=== PATIENT | female | born 1955 | race Caucasian/White ===

== ENCOUNTER → 2018-08-26 11:34 | Outpatient (CLI) | payer BC, SELFPAY ==
[2018-08-26 12:17] LABS: Add Manual Diff / Slide Review NO; Basophils Percent Auto 0.8 % (0-2); Eosinophils Percent Auto 6.5 % (2-4); Hematocrit 41.5 % (36-46); Hemoglobin 14.3 g/dL (12.0-16.0); Lymphocytes Percent Auto 41.9 % (25-40); Mean Corpuscular HGB Conc 34.4 % (30-36); Mean Corpuscular Volume 89.9 fL (80-100); Monocytes Percent Auto 8.5 % (3-14); Neutrophils Absolute Auto 3400 /uL (3000-5900); Neutrophils Percent Auto 42.3 % (50-75); Platelet Count 224 X10^3/uL (150-400); Red Blood Cell Count 4.61 X10^6/uL (4.0-5.2); Red Cell Distribution Width 13.3 % (11.6-14.8); White Blood Cell Count 8.1 X10^3/uL (4.5-11.0)
[2018-08-26 12:23] LABS: Alanine Aminotransferase 29 IU/L (9-52); Albumin 4.3 g/dL (3.5-5.0); Albumin Globulin Ratio 1.3 (1.0-2.8); Alkaline Phosphatase 69 U/L (38-126); Aspartate Aminotransferase 19 IU/L (14-36); Bilirubin Total 0.5 mg/dL (0.2-1.3); Blood Urea Nitrogen 21 mg/dL (7-17); Calcium 9.9 mg/dL (8.4-10.2); Carbon Dioxide 28 mmol/L (22-32); Chloride 103 mmol/L (98-107); Cholesterol 193 mg/dL (140-199); Estimated Glomerular Filt Rate > 60.0 mL/min (>60); Globulin 3.2 g/dL (1.7-4.1); Glucose 90 mg/dL (80-110); HDL Cholesterol 44 mg/dL (40-60); HEMOLYSIS < 15 (0-50); LDL Cholesterol Calculated 135 mg/dL (<100); Potassium 4.1 mmol/L (3.4-5.1); Sodium 141 mmol/L (137-145); Total Protein 7.5 g/dL (6.3-8.2); Triglycerides 70 mg/dL (35-150)
[2018-08-26 12:54] LABS: Thyroid Stimulating Hormone 1.45 uIU/mL (0.47-4.68)
== END ==
PROVIDERS: PCP Internal Medicine; Visit Provider Internal Medicine
DX: E78.5 Hyperlipidemia, unspecified (principal)
CPT/HCPCS: 36415; 80053; 80061; 84443; 85025

== ENCOUNTER → 2018-09-29 13:44 | Outpatient (CLI) | payer BC, SELFPAY | PROVIDERS: PCP Internal Medicine; Visit Provider Internal Medicine | DX: M81.0 Age-related osteoporosis without current pathological fracture (principal); Z78.0 Asymptomatic menopausal state; Z82.62 Family history of osteoporosis; Z87.891 Personal history of nicotine dependence | CPT/HCPCS: 77080 ==

== ENCOUNTER → 2018-10-14 11:43 | Outpatient (CLI) | payer BC, SELFPAY ==
[2018-10-17 14:10] LABS: Parathyroid Hormone Int 42 pg/mL (14-64)
== END ==
PROVIDERS: PCP Internal Medicine; Visit Provider Internal Medicine
DX: M81.0 Age-related osteoporosis without current pathological fracture (principal)
CPT/HCPCS: 36415; 83970

== ENCOUNTER → 2019-09-19 14:18 | Outpatient (CLI) | payer BC, SELFPAY ==
--- NOTE | 2019-09-19 | DI.MG.S_ITS ---
BILATERAL DIGITAL SCREENING MAMMOGRAM 3D/2D WITH CAD: 09/19/2019 CLINICAL: Routine screening. Comparison is made to exams dated: 10/22/2016 mammogram, 02/27/2015 mammogram, and 09/28/2013 mammogram - [facility]. The tissue of both breasts is heterogeneously dense. This may lower the sensitivity of mammography. Current study was also evaluated with a Computer Aided Detection (CAD) system. There is an oval equal density asymmetry with an indistinct margin in the right breast middle depth medial region seen on the craniocaudal view only. No other significant masses, calcifications, or other findings are seen in either breast. IMPRESSION: INCOMPLETE: NEEDS ADDITIONAL IMAGING EVALUATION The oval equal density asymmetry in the right breast is indeterminate. Mediolateral and spot compression views as well as additional views with possible ultrasound are recommended. This exam was interpreted at Station ID: [id number]. NOTE: For mammograms, a report in lay terms will be sent to the patient. Approximately 15% of breast malignancies will not be visualized mammographically. In the management of a palpable breast mass, a negative mammogram must not discourage biopsy of a clinically suspicious lesion. Electronically Signed By: Sam canas/roni:09/19/2019 15:29:04 letter sent: Additional Imaging Needed ACR BI-RADS Category 0: Incomplete 3340F
== END ==
PROVIDERS: PCP Internal Medicine; Visit Provider Internal Medicine
DX: Z12.31 Encounter for screening mammogram for malignant neoplasm of breast (principal); M81.0 Age-related osteoporosis without current pathological fracture; Z78.0 Asymptomatic menopausal state; Z82.62 Family history of osteoporosis; Z87.891 Personal history of nicotine dependence
CPT/HCPCS: 77063; 77067; 77080

== ENCOUNTER → 2019-10-12 08:06 | Outpatient (CLI) | payer BC, SELFPAY ==
--- NOTE | 2019-10-12 | DI.MG.S_ITS ---
UNILATERAL RIGHT DIGITAL DIAGNOSTIC MAMMOGRAM 3D/2D WITH ADDITIONAL VIEWS: 10/12/2019 CLINICAL: Additional evaluation requested from prior study. Comparison is made to exams dated: 09/19/2019 mammogram, 10/22/2016 mammogram, and 02/27/2015 mammogram - [facility]. The tissue of right breast is heterogeneously dense. This may lower the sensitivity of mammography. The oval asymmetry with indistinct margins in the right breast middle depth medial region seen on the craniocaudal view only is not seen on additional views. No other significant masses or calcifications are seen in the breast. IMPRESSION: There is no mammographic evidence of malignancy. A 1 year screening mammogram is recommended. This exam was interpreted at Station ID: [id number]. NOTE: For mammograms, a report in lay terms will be sent to the patient. Approximately 15% of breast malignancies will not be visualized mammographically. In the management of a palpable breast mass, a negative mammogram must not discourage biopsy of a clinically suspicious lesion. Electronically Signed By: Sam canas/:10/12/2019 08:42:37 letter sent: Normal Exam ACR BI-RADS Category 2: Benign Finding(s) 3342F
== END ==
PROVIDERS: PCP Internal Medicine; Visit Provider Internal Medicine
DX: R92.8 Other abnormal and inconclusive findings on diagnostic imaging of breast (principal)
CPT/HCPCS: 77065; G0279

== ENCOUNTER 2020-11-24 17:59 | Emergency (ER) | payer BC, SELFPAY ==
[2020-11-24 18:08] VITALS: BP 129/61; PULSE 66; RESP 14; TEMP 36.6; O2SAT 97
[2020-11-24] MEDS: SODIUM CHLORIDE 0.9% 1,000 ML 1000 ML IV (18:30)
[2020-11-24 18:34] LABS: INR 1.1 (0.9-1.3); Prothrombin Time 12.4 SECONDS (10.1-12.7)
[2020-11-24 18:35] LABS: Add Manual Diff / Slide Review NO; Basophils Absolute Auto 100 /uL (0-100); Basophils Percent Auto 0.6 % (0-2); Eosinophils Absolute Auto 200 /uL (0-450); Eosinophils Percent Auto 2.2 % (2-4); Hematocrit 39.7 % (36-46); Hemoglobin 13.6 g/dL (12.0-16.0); Lymphocytes Absolute Auto 3600 /uL (1100-4500); Mean Corpuscular HGB Conc 34.3 % (30-36); Mean Corpuscular Hemoglobin 31.1 PG (26-34); Mean Corpuscular Volume 90.7 fL (80-100); Monocytes Absolute Auto 600 /uL (0-900); Monocytes Percent Auto 5.5 % (3-14); Neutrophils Absolute Auto 5900 /uL (1500-7000); Neutrophils Percent Auto 56.7 % (50-75); Platelet Count 225 X10^3/uL (150-400); Red Blood Cell Count 4.37 X10^6/uL (4.0-5.2); Red Cell Distribution Width 13.1 % (11.6-14.8); White Blood Cell Count 10.4 X10^3/uL (4.5-11.0)
[2020-11-24 18:37] LABS: PTT Partial Thromboplastin Tim 33 SECONDS (26.4-36.2)
[2020-11-24 18:40] LABS: Alanine Aminotransferase 13 IU/L (<35); Albumin Globulin Ratio 1.1 (1.0-2.8); Alkaline Phosphatase 90 U/L (38-126); Aspartate Aminotransferase 24 IU/L (14-36); BUN Creatinine Ratio 28.6 (6-22); Bilirubin Total 0.4 mg/dL (0.2-1.3); Blood Urea Nitrogen 14 mg/dL (7-17); Carbon Dioxide 29 mmol/L (22-32); Chloride 107 mmol/L (98-107); Creatine Kinase 22 U/L (30-135); Estimated Glomerular Filt Rate > 60.0 mL/min (>60); Globulin 3.5 g/dL (1.7-4.1); Glucose 101 mg/dL (80-110); HEMOLYSIS 43 (0-50); Lipase 67 U/L (23-300); Sodium 137 mmol/L (137-145); Total Protein 7.5 g/dL (6.3-8.2)
[2020-11-24 18:51] LABS: Troponin I < 0.012 ng/mL (0.01-0.034)
--- NOTE | 2020-11-24 19:20 | PC.NURSE ---
jPatient reports waking with sugar hangover reports increase thirst, increase gas. Nausea, one episode of diarrhea. Denies hitting head but caught myself going down. I bounce real well Patient states she feels better after the IV fluids she has received here in department. Patient denies burning urgency or frequency but has noted an odor to urine.
--- NOTE | 2020-11-24 20:31 | ED.DIZZY ---
HPI - Dizziness General Chief Complaint: Dizziness Stated Complaint: vertigo this morning,nausea,indigestion,headache Time Seen by Provider: 11/24/20 20:09 Source: patient Mode of arrival: Ambulatory Limitations: no limitations History of Present Illness HPI Narrative: 65-year-old woman with a history reflux presents complaining of acute onset of dizziness earlier this morning. She did have a small bit of loose stool this morning. She has noted some chills but no fevers significant nausea but no emesis. She notes that she was simply walking down the hallway when all of a sudden the room began spinning and she had to collect onto the wall. Over the course of the day it has continued, perhaps slightly diminishing over the course of the afternoon. She notes no numbness or weakness in extremities, no difficulty with finding words or expressing herself. She does note that for the last at least year she has had some decreased acuity in the left eye and does have an eye appointment scheduled to follow-up on this. Related Data Previous Rx's Medication Instructions Recorded duloxetine 60 mg capsule,delayed 60 mg PO QAM #90 tab 09/11/18 release estradiol 0.05 mg-norethindrone 1 patch TRANSDERMAL TWICE WEEKLY 09/11/18 0.14 mg/24 hr semiwkly transderm #24 each patch triamcinolone acetonide 0.1 % 1 applictn TOP DAILY #30 gram 09/11/18 topical ointment ibandronate 150 mg tablet 150 mg PO QMONTH #3 tab 09/25/18 meclizine 25 mg PO BID PRN #14 tab 11/24/20 ondansetron 4 mg PO Q8H PRN #20 tab 11/24/20 Allergies Allergy/AdvReac Type Severity Reaction Status Date / Time venlafaxine [VENLAFAXINE] Allergy Mild NIGHTMARES Verified 11/24/20 18:23 Review of Systems Review of Systems ROS Unobtainable: All systems reviewed & are unremarkable except as noted in HPI and below Patient History Medical History Chronic back pain (~2013) Depression (~2000) GERD (gastroesophageal reflux disease) (~2008) Surgical History Status post cholecystectomy (~2011) Family History Mother Cancer Grandmother No problems noted. Social History Smoking Status: Former smoker Smoking Status: Former smoker alcohol intake frequency: 0-2 drinks per day Substance Use Type: does not use Exam Narrative Exam Narrative: General: Healthy appearing, in no acute distress. Able to give a complete and coherent history. Well-nourished well-developed HEENT: Moist mucous membranes, normal sclera with reactive pupils, no evoked nausea or nystagmus with acute positional changes Neck: No JVD, supple Respiratory: Lungs are clear to auscultation, no wheezing no rales no rhonchi. Full and symmetrical air movement Cardiac: Regular rate and rhythm no murmurs no bruits Abdomen: Soft nontender good bowel tones, no flank pain Skin: Warm and dry, no rashes Neurologic: Grossly neurologically intact with no obvious asymmetries or abnormalities Extremities: No trauma, well perfused Psych: Cooperative, appropriate insight and affect Initial Vital Signs Initial Vital Signs: Vital Signs Temperature 97.8 F 11/24/20 18:08 Pulse Rate 66 11/24/20 18:08 Respiratory Rate 14 11/24/20 18:08 Blood Pressure 129/61 11/24/20 18:08 Pulse Oximetry 97 11/24/20 18:08 Course Orders Ordered: Discontinued Medications Sodium Chloride (Normal Saline 0.9%) 1,000 mls @ 1,000 mls/hr IV BOLUS ONE Stop: 11/24/20 19:27 Last Infusion: 11/24/20 19:44 Dose: 0 mls/hr Documented by: Admin: 11/24/20 18:30 Dose: 1,000 mls/hr Documented by: ALVA Meclizine HCl (Meclizine Hcl 12.5 Mg Tablet) 25 mg PO NOW ONE Stop: 11/24/20 20:12 Last Admin: 11/24/20 20:46 Dose: 25 mg Documented by: ALVA Ondansetron HCl (Ondansetron 4 Mg/2 Ml Inj) 4 mg IV NOW ONE Stop: 11/24/20 20:45 Last Admin: 11/24/20 20:47 Dose: 4 mg Documented by: ALVA Vital Signs Vital signs: Vital Signs - 8 hr 11/24/20 20:52 Pulse Rate 62 Respiratory Rate 17 Blood Pressure 135/61 Pulse Oximetry 99 MDM - Dizziness Medical Records Attestation: I reviewed the patient's medical records. Lab Data Attestation: I reviewed the patient's lab results. Result diagrams: 11/24/20 18:19 11/24/20 18:19 Labs: Lab Results 11/24/20 11/24/20 11/24/20 Range/Units 18:19 18:19 18:19 WBC 10.4 (4.5-11.0) X10^3/uL RBC 4.37 (4.0-5.2) X10^6/uL Hgb 13.6 (12.0-16.0) g/dL Hct 39.7 (36-46) % MCV 90.7 (80-100) fL MCH 31.1 (26-34) PG MCHC 34.3 (30-36) % RDW 13.1 (11.6-14.8) % Plt Count 225 (150-400) X10^3/uL Neut % (Auto) 56.7 (50-75) % Lymph % (Auto) 35.0 (25-40) % [place] % (Auto) 5.5 (3-14) % Eos % (Auto) 2.2 (2-4) % Baso % (Auto) 0.6 (0-2) % Neut # (Auto) 5900 (0431-2277) /uL Lymph # (Auto) 3600 (7759-1746) /uL [place] # (Auto) 600 (0-900) /uL Eos # (Auto) 200 (0-450) /uL Baso # (Auto) 100 (0-100) /uL PT 12.4 (10.1-12.7) SECONDS INR 1.1 (0.9-1.3) APTT 33 (26.4-36.2) SECONDS Sodium 137 (137-145) mmol/L Potassium 4.0 (3.4-5.1) mmol/L Chloride 107 (98-107) mmol/L Carbon Dioxide 29 (22-32) mmol/L BUN 14 (7-17) mg/dL Creatinine 0.49 L (0.52-1.04) mg/dL Estimated GFR > 60.0 (>60) mL/min BUN/Creatinine Ratio 28.6 H (6-22) Glucose 101 (80-110) mg/dL Calcium 10.0 (8.4-10.2) mg/dL Magnesium 2.0 (1.6-2.3) mg/dL Total Bilirubin 0.4 (0.2-1.3) mg/dL AST 24 (14-36) IU/L ALT 13 (<35) IU/L Alkaline Phosphatase 90 (38-126) U/L Total Creatine Kinase 22 L (30-135) U/L CK-MB (CK-2) TNP CK-MB (CK-2) Rel Index TNP Troponin I < 0.012 (0.01-0.034) ng/mL Total Protein 7.5 (6.3-8.2) g/dL Albumin 4.0 (3.5-5.0) g/dL Globulin 3.5 (1.7-4.1) g/dL Albumin/Globulin Ratio 1.1 (1.0-2.8) Lipase 67 (23-300) U/L Urine Dip Bedside Urine Glucose Negative Bedside Urine Bilirubin - Negative Bedside Urine Ketone - Negative Urine Specific [place] 1.025 Bedside Urine Occult Blood +/- Bedside Urine pH 6.0 Bedside Urine Protein - Negative Bedside Urine Urobilinogen - Negative Bedside Urine Nitrite - Negative Bedside Urine Leukocytes - Negative Esterase MDM Narrative Medical decision making narrative: 65-year-old woman presents with acute vertigo without signs or symptoms suggesting stroke, head bleed, benign positional vertigo, trauma, infection or other life threatening issues. Symptoms did improve with meclizine in terms of vertigo still much slight nausea that improved with Zofran. She was able to walk without difficulty and is discharged home Discharge Plan Departure Patient Disposition: Home Clinical Impression: Vertigo Instructions: DI for Vertigo Activity Restrictions/Additional Instructions: Thank you for coming in today Vertigo is a horrible symptom. Fortunately it already seems like it is improving a bit for you. You are not showing any signs of severe infection or stroke as a cause for the vertigo today. To treat the spinning type symptoms, you can use meclizine For symptoms that are more related to nausea you can use Zofran If you feel things are getting worse or your developing any new neurologic type symptoms (part of your body isn't working right, numbness, difficulty speaking or understanding things) please feel free to return for further evaluation. Prescriptions: New meclizine 25 mg tablet 25 mg PO BID PRN (Reason: vertigo) Qty: 14 RF: 0 ondansetron 4 mg tablet,disintegrating 4 mg PO Q8H PRN (Reason: nausea and vomiting) Qty: 20 RF: 0 No Action ibandronate 150 mg tablet 150 mg PO QMONTH Qty: 3 RF: 3 triamcinolone acetonide 0.1 % ointment 1 applictn TOP DAILY Qty: 30 RF: 0 estradiol-norethindrone acet [CombiPatch] 0.05-0.14 mg/24 hr patch semiweekly 1 patch Transdermal TWICE WEEKLY Qty: 24 RF: 3 duloxetine [Cymbalta] 60 mg capsule,delayed release(DR/EC) 60 mg PO QAM Qty: 90 RF: 3 Referrals: Charlotte Shepard ARNP [Primary Care Provider] -
[2020-11-24] MEDS: MECLIZINE HCL 12.5 MG TABLET 25 MG PO (20:46)
[2020-11-24] MEDS: ONDANSETRON 4 MG/2 ML INJ IV (20:47)
[2020-11-24 20:52] VITALS: BP 135/61; PULSE 62; RESP 17; O2SAT 99
== END 2020-11-24 20:56 | disposition home or self-care (01) ==
PROVIDERS: Emergency Medicine; Emergency Provider Emergency Medicine; PCP Internal Medicine
DX: R42 Dizziness and giddiness (principal); R11.0 Nausea
CPT/HCPCS: 36415; 80053; 81003; 82550; 83690; 83735; 84484; 85025; 85610; 85730; 93005; 96361; 96374; 99283; 99284; J2405

== ENCOUNTER → 2022-02-04 19:34 | Outpatient (CLI) | payer BC, SELFPAY ==
--- NOTE | 2022-02-04 | DI.MRI.S_ITS ---
PROCEDURE: MR HEAD/BRAIN WO/W CON INDICATIONS: memory changes TECHNIQUE: Noncontrast axial T1 spin echo, axial T2 fast spin echo, sagittal and axial FLAIR, coronal T2 fast spin echo, axial gradient echo, axial diffusion and ADC through the brain. After the administration of contrast, axial and coronal 3D VIBE or T1 spin echo with fat saturation through the brain. COMPARISON: None. FINDINGS: Image quality: Excellent. CSF Spaces: Basal cisterns are patent. No extra-axial fluid collections. Ventricles are normal in size and shape. Brain: No midline shift. No intracranial bleeds or masses. There is mild, diffuse cerebral volume loss. There are mild to moderate periventricular and subcortical white matter chronic microvascular ischemic changes. No abnormal intracranial enhancement. The brainstem appears normal. Diffusion-weighted images demonstrate no acute ischemic insults. No chronic ischemic insults. Normal intravascular flow voids are present. Dural sinuses demonstrate normal postcontrast enhancement. Skull and face: Calvarial marrow is normal in signal. Orbits appear normal. Sinuses: Sinuses and mastoids appear clear. IMPRESSION: 1. No acute intracranial disease process. 2. No areas of acute or chronic infarction. 3. No abnormal intracranial mass or mass effect. 4. No suspicious postcontrast enhancement. New 5. Mild, diffuse cerebral volume loss. 6. [id number] periventricular and subcortical white matter chronic microvascular ischemic change. Dictated by: Flor Schwartz MD, PhD on 02/05/2022 at 13:54 Approved by: Flor Schwartz MD, PhD on 02/05/2022 at 13:59
== END ==
PROVIDERS: PCP Internal Medicine; Referring Provider Internal Medicine; Visit Provider Internal Medicine
DX: R41.89 Other symptoms and signs involving cognitive functions and awareness (principal); H93.13 Tinnitus, bilateral; R53.83 Other fatigue
CPT/HCPCS: 70553; A9579

== ENCOUNTER → 2022-03-08 14:54 | Outpatient (CLI) | payer BC, SELFPAY ==
--- NOTE | 2022-03-08 14:55 | DI.MG.S_ITS ---
BILATERAL DIGITAL SCREENING MAMMOGRAM 3D/2D WITH CAD: 03/08/2022 CLINICAL: Routine screening. Family history of breast cancer. Comparison is made to exams dated: 10/12/2019 mammogram, 09/19/2019 mammogram, 10/22/2016 mammogram, and 02/27/2015 mammogram - [facility]. The tissue of both breasts is heterogeneously dense. This may lower the sensitivity of mammography. Current study was also evaluated with a Computer Aided Detection (CAD) system. No significant masses, calcifications, or other findings are seen in either breast. There has been no significant interval change. IMPRESSION: NEGATIVE There is no mammographic evidence of malignancy. A 1 year screening mammogram is recommended. This exam was interpreted at Station ID: [id number]. NOTE: For mammograms, a report in lay terms will be sent to the patient. Approximately 15% of breast malignancies will not be visualized mammographically. In the management of a palpable breast mass, a negative mammogram must not discourage biopsy of a clinically suspicious lesion. Electronically Signed By: Wendy angulo/roni:03/08/2022 16:25:53 letter sent: Normal Exam ACR BI-RADS Category 1: Negative 3341F
== END ==
PROVIDERS: PCP Internal Medicine; Referring Provider Internal Medicine; Visit Provider Internal Medicine
DX: Z12.31 Encounter for screening mammogram for malignant neoplasm of breast (principal); Z80.3 Family history of malignant neoplasm of breast
CPT/HCPCS: 77063; 77067

== ENCOUNTER → 2024-12-03 | Outpatient (CLI) | payer MEDICARE, SELFPAY ==
--- NOTE | 2024-12-03 09:47 | DI.MG.S_ITS ---
BILATERAL DIGITAL SCREENING MAMMOGRAM 3D/2D WITH CAD: 12/03/2024 CLINICAL: Routine screening. Family history of breast cancer. Comparison is made to exams dated: 03/08/2022 mammogram, 10/12/2019 mammogram, 09/19/2019 mammogram, and 10/22/2016 mammogram - [facility]. The breasts are heterogeneously dense, which may obscure small masses (category c / 51-75% glandular tissue). Current study was also evaluated with a Computer Aided Detection (CAD) system. No significant masses, calcifications, or other findings are seen in either breast. There has been no significant interval change. IMPRESSION: NEGATIVE There is no mammographic evidence of malignancy. A 1 year screening mammogram is recommended. Based on the Tyrer Cuzick model (a risk assessment model) the patient's lifetime risk is 14.0% and her 10 year risk is 7.5%. According to the ACR, ACS, and NCCN guidelines, an annual breast MRI exam along with mammogram is recommended if the patient's lifetime risk is 20% or greater. This exam was interpreted at Station ID: [id number]. NOTE: For mammograms, a report in lay terms will be sent to the patient. Approximately 15% of breast malignancies will not be visualized mammographically. In the management of a palpable breast mass, a negative mammogram must not discourage biopsy of a clinically suspicious lesion. Electronically Signed By: Sarah Penaloza M.D., Ph.D. marshall/roni:12/05/2024 07:45:34 letter sent: Normal Exam ACR BI-RADS Category 1: Negative
== END ==
PROVIDERS: PCP Internal Medicine; Referring Provider Internal Medicine; Visit Provider Internal Medicine
DX: Z12.31 Encounter for screening mammogram for malignant neoplasm of breast (principal); Z80.3 Family history of malignant neoplasm of breast; R92.333 Mammographic heterogeneous density, bilateral breasts
CPT/HCPCS: 77063; 77067